=== PATIENT | male | born 1945 | race Caucasian/White ===

== ENCOUNTER 2018-03-26 00:11 | Outpatient (CLI) | payer OTHER, MEDICARE, SELFPAY ==
--- NOTE | 2018-03-26 14:18 | DI.RAD_ITS ---
SYMPTOMS/DIAGNOSIS: PRE MRI CLEARANCE, H/O ACID TENDER 30 YEARS AGO ORBITS: The exam was performed prior to MRI. No metallic foreign bodies are identified.
--- NOTE | 2018-03-26 16:01 | DI.MRI_ITS ---
SYMPTOMS/DIAGNOSIS: MEMORY LOSS, PARKINSONISM MRI OF THE BRAIN: There are no prior comparison exams. The exam is limited by patient motion. T2 sagittal, T1, T2, FLAIR, diffusion and gradient-echo axial sequences were performed. There is mild atrophy. There are no significant white matter changes. The ventricles are normal in size. The vascular flow voids are grossly unremarkable. The orbits, sinuses and pituitary are unremarkable. IMPRESSION: Mild atrophy. No acute abnormality.
== END 2018-03-26 00:31 ==
PROVIDERS: Visit Provider Psychiatry & Neurology Neurology
DX: R41.3 Other amnesia (principal); G20 Parkinson's disease; G31.1 Senile degeneration of brain, not elsewhere classified
CPT/HCPCS: 70030; 70551